=== PATIENT | male | born 2000 | race Caucasian/White ===

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

== ENCOUNTER 2022-08-26 14:16 | Emergency (ER) | payer OTHER ==
[~2022-08-26] VITALS: Ht 170.2 cm; Wt 115.7 kg
[2022-08-26 14:51] VITALS: BP_SYST 125
[2022-08-26] MEDS ORDERED: KETOROLAC TROMETHAMINE 60 MG/2 ML VIAL IM ONE (15:15)
[2022-08-26] MEDS ORDERED: SOM350 PO (16:27)
[2022-08-26] MEDS ORDERED: IBUP-1971 PO (16:27)
== END 2022-08-26 16:35 | disposition home or self-care (01) ==
LOC: SED 14:16
DX: S39.012A Strain of muscle, fascia and tendon of lower back, initial encounter (principal); X50.0XXA Overexertion from strenuous movement or load, initial encounter; Y93.89 Activity, other specified; Y92.89 Other specified places as the place of occurrence of the external cause; Y99.8 Other external cause status
CPT/HCPCS: 99283; 72100; 96372; J1885